=== PATIENT | male | born 1960 | race African-American/Black ===

== ENCOUNTER → 2016-10-22 | Outpatient (CLI) | payer OTHER ==
[2016-10-22 11:47] LABS: ASPARTATE AMINO TRANSFERASE 183 U/L (15-37); BLOOD UREA NITROGEN 8 mg/dL (7-18); PROSTATE SPECIFIC ANTIGEN 0.38 ng/mL (0.00-4.00)
== END | disposition home or self-care (01) ==
LOC: CFH 07:15
PROVIDERS: ATTEND Nurse Practitioner Family
DX: Z12.9 Encounter for screening for malignant neoplasm, site unspecified (principal); E78.2 Mixed hyperlipidemia; E53.8 Deficiency of other specified B group vitamins; D77 Other disorders of blood and blood-forming organs in diseases classified elsewhere; R74.0 Nonspecific elevation of levels of transaminase and lactic acid dehydrogenase [LDH]; I10 Essential (primary) hypertension; E55.9 Vitamin D deficiency, unspecified
CPT/HCPCS: 36415; 80053; 80061; 82043; 82306; 82607; 82746; 84153; 84425; 84443; 85025

== ENCOUNTER → 2019-05-24 | Outpatient (CLI) | payer OTHER ==
[~2019-05-24] MED LIST: FINA5TAB4 PO; LOSA50TA14 PO; MULT-658 PO; TAMS-11 PO; VERA120T5 PO; ibuprofen PO; magnesium PO; vitamin B12 PO
[2019-05-24 10:06] LABS: BASOPHILS # (AUTO) 0.02 x10^3/uL (0-0.1); BASOPHILS % (AUTO) 0 % (0-1); EOSINOPHILS # (AUTO) 0.04 x10^3/uL (0-0.4); EOSINOPHILS % (AUTO) 1 % (1-7); LYMPHOCYTES # (AUTO) 2.65 x10^3/uL (1-3.4); LYMPHOCYTES % (AUTO) 44 % (22-44); MD NO; MEAN CORPUSCULAR HEMOGLOBIN 33.2 pg (27.5-34.5); MEAN CORPUSCULAR HGB CONC 33.4 g/dL (33.2-36.2); MEAN CORPUSCULAR VOLUME 99.4 fL (81-97); MEAN PLATELET VOLUME 7.1 fL (7.4-10.4); MONOCYTES # (AUTO) 0.56 x10^3/uL (0.2-0.8); MONOCYTES % (AUTO) 9 % (2-9); NEUTROPHILS # (AUTO) 2.79 x10^3/uL (1.8-6.8); NEUTROPHILS % (AUTO) 46 % (42-75); PLATELET COUNT 282 x10^3/uL (130-400); RED BLOOD COUNT 4.57 x10^6/uL (4.38-5.82); RED CELL DISTRIBUTION WIDTH 14.1 % (9.4-14.8)
[2019-05-24 10:08] LABS: CULTURE INDICATED? NO; MICROSCOPIC AUTO
[2019-05-24 10:18] LABS: INTERNATIONAL NORMALIZED RATIO 1.13 (0.93-1.1); PROTHROMBIN TIME 11.8 Seconds (9.6-11.5)
[2019-05-24 10:19] LABS: ALANINE AMINOTRANSFERASE 32 U/L (12-78); ALBUMIN 3.8 g/dL (3.4-5.0); ANION GAP 8 mmol/L (5-15); CALCIUM 9.6 mg/dL (8.5-10.1); CHLORIDE 107 mmol/L (98-107); CREATININE 0.96 mg/dL (0.7-1.3)
[2019-05-24 10:21] LABS: ALKALINE PHOSPHATASE 143 U/L (45-117); BILIRUBIN,TOTAL 0.5 mg/dL (0.2-1.0); TOTAL PROTEIN 8.5 g/dL (6.4-8.2)
== END | disposition home or self-care (01) ==
LOC: STAR 08:34
PROVIDERS: ATTEND Neurological Surgery
DX: M51.26 Other intervertebral disc displacement, lumbar region (principal); M48.061 Spinal stenosis, lumbar region without neurogenic claudication; R79.1 Abnormal coagulation profile; R94.31 Abnormal electrocardiogram [ECG] [EKG]; R82.90 Unspecified abnormal findings in urine
CPT/HCPCS: 36415; 71046; 80053; 81001; 85025; 85610; 85730; 93005

== ENCOUNTER 2019-06-11 12:27 | Inpatient (IN) | payer OTHER ==
[~2019-06-11] VITALS: Ht 185.4 cm; Wt 122.7 kg
[~2019-06-11 12:27] MED LIST changes: +CEPH-368 PO; +CHLO25TA PO; +CYCL-259 PO; +HYDR20TA PO; +OXYC-302 PO
[2019-06-11] MEDS ORDERED: VANCOMYCIN PER PHARMACY MC ONE (14:00)
[2019-06-11] MEDS ORDERED: PIPERACILLIN/TAZO/PMX 3.375GM 50 ML IVPB ONE (14:00)
[2019-06-11] MEDS ORDERED: PHARMACOKINETIC CONSULTATION MC ONE (14:00)
[2019-06-11 14:06] LABS: BASOPHILS # (AUTO) 0.03 x10^3/uL (0-0.1); BASOPHILS % (AUTO) 0 % (0-1); EOSINOPHILS # (AUTO) 0.11 x10^3/uL (0-0.4); EOSINOPHILS % (AUTO) 1 % (1-7); LYMPHOCYTES # (AUTO) 2.18 x10^3/uL (1-3.4); LYMPHOCYTES % (AUTO) 27 % (22-44); MD NO; MEAN CORPUSCULAR HEMOGLOBIN 33.4 pg (27.5-34.5); MEAN CORPUSCULAR HGB CONC 33.2 g/dL (33.2-36.2); MEAN CORPUSCULAR VOLUME 100.6 fL (81-97); MEAN PLATELET VOLUME 7.3 fL (7.4-10.4); MONOCYTES % (AUTO) 9 % (2-9); NEUTROPHILS % (AUTO) 63 % (42-75); PLATELET COUNT 308 x10^3/uL (130-400); RED CELL DISTRIBUTION WIDTH 14.6 % (9.4-14.8)
[2019-06-11 14:18] LABS: ALANINE AMINOTRANSFERASE 66 U/L (12-78); ALBUMIN 3.2 g/dL (3.4-5.0); ANION GAP 9 mmol/L (5-15); CHLORIDE 101 mmol/L (98-107); CREATININE 1.53 mg/dL (0.7-1.3)
[2019-06-11 14:21] LABS: ALKALINE PHOSPHATASE 164 U/L (45-117); BILIRUBIN,TOTAL 0.3 mg/dL (0.2-1.0)
[2019-06-11] MEDS ORDERED: VANCOMYCIN 2,200 MG in SODIUM CHLORIDE 0.9% 500 ML IV ONE (14:30)
[2019-06-11] MEDS ORDERED: TAMS-11 PO (14:59)
--- NOTE | 2019-06-11 15:03 | NUR ---
PT IN BED, AT BEDSIDE. PLAN OF CARE DISCUSSED, ALL QUESTIONS ADDRESSED BEST POSSIBLE. SURGEON TO COMMUNICATE WITH PATIENT LATER FOR SURGICAL TIME. PT WOULD LIKE TO EAT, ON HOLD UNTIL TIME ESTABLISHED. PT STRAIGHT CATH'D FOR RETENTION FOR PATIENT COMFORT, 150ML REMOVED, PT STILL UNCOMFORTABLE HOWEVER EDUCATED ON JUAN PLACEMENT PROCEDURES AND NEED TO WAIT UNTIL OUT OF ER FOR FURTHER TREATMENT. PT AGREEABLE, DENIES ANY NEEDS OR CONCERNS AT THIS TIME. [facility] AT BEDSIDE, REPORT CALLED TO RECEIVING RN. [facility] WILL BE SENT WITH PATIENT. AWAITING TRANSPORT AT THIS TIME. CALL LIGHT IN REACH.
[2019-06-11] MEDS ORDERED: BUPIVACAINE/PF 0.5% ONE (16:47)
[2019-06-11] MEDS ORDERED: VANCOMYCIN 1,000 MG ONE (16:47)
[2019-06-11] MEDS ORDERED: THROMBIN (RECOMBINANT) 5,000 UNIT VIAL TP ONE (16:47)
[2019-06-11] MEDS ORDERED: BACITRACIN 50,000 UNIT ONE (16:48)
[2019-06-11] MEDS ORDERED: EPINEPHRINE 1 MG/ML, 1ML ONE (16:48)
[2019-06-11] MEDS ORDERED: LABETALOL 5MG/ML, 20ML IVPush PRN (17:00)
[2019-06-11] MEDS ORDERED: hydrALAzine 20 MG/ML, 1ML IVPush PRN (17:00)
[2019-06-11] MEDS ORDERED: DOCUSATE 100 MG CAPSULE PO PRN (17:00)
[2019-06-11] MEDS: HEPARIN 5,000 UNITS/ML, 1ML SQ SCH (17:00)
[2019-06-11] MEDS ORDERED: morphine SULFATE 10 MG/ML, 1ML IVPush PRN ×2 (17:00→19:30)
[2019-06-11] MEDS ORDERED: ONDANSETRON ODT 4 MG PO PRN (17:00)
[2019-06-11] MEDS ORDERED: OXYcodone IR 5MG TABLET PO PRN (17:00)
[2019-06-11] MEDS ORDERED: HYDROmorphone 2 MG/ML, 1ML IVPush PRN (17:00)
[2019-06-11] MEDS ORDERED: POLYETHYLENE GLYCOL 17 GM PACKET PO PRN (17:00)
[2019-06-11] MEDS ORDERED: BISACODYL 10 MG SUPP PR PRN ×2 (17:00→19:30)
[2019-06-11] MEDS ORDERED: PROMETHAZINE 25 MG/ML, 1ML IM PRN ×2 (17:00→19:30)
[2019-06-11] MEDS ORDERED: METOCLOPRAMIDE 5 MG/ML, 2ML IVPush PRN (17:00)
[2019-06-11] MEDS ORDERED: CYCLOBENZAPRINE 10 MG TABLET PO PRN ×2 (17:00)
[2019-06-11] MEDS ORDERED: FENTANYL PF 250 MCG/5ML ONE (17:27)
[2019-06-11] MEDS ORDERED: MIDAZOLAM 1 MG/ML, 2ML ONE (17:27)
[2019-06-11] MEDS: CEFTRIAXONE PMX 2GM/50ML 50 ML IV SCH (17:30)
[2019-06-11] MEDS ORDERED: HYDROCORTISONE 100 MG INJ. ONE (17:35)
[2019-06-11] MEDS ORDERED: ROCURONIUM 10MG/ML,5ML ONE (18:34)
[2019-06-11] MEDS ORDERED: GLYCOPYRROLATE 0.2MG/1ML, 5ML ONE (18:34)
[2019-06-11] MEDS ORDERED: PROPOFOL 10 MG/ML, 20ML ONE (18:34)
[2019-06-11] MEDS ORDERED: ONDANSETRON 2MG/ML, 2ML ONE (18:35)
[2019-06-11] MEDS ORDERED: FENTANYL PF 100 MCG/2ML ONE ×2 (19:10→19:46)
[2019-06-11] MEDS: FENTANYL PF 100 MCG/2ML IV PRN ×4 (19:21→20:01)
[2019-06-11] MEDS ORDERED: OXYcodone 5 MG/5 ML ORAL.SOL UDC ONE ×2 (19:24)
[2019-06-11] MEDS ORDERED: HYDROmorphone 1 MG/ML, 1ML INJ ONE ×2 (19:24→20:02)
[2019-06-11] MEDS ORDERED: PHARMACY MAY ADJ FOR RENAL FX MC PRN (19:30)
[2019-06-11] MEDS ORDERED: ONDANSETRON 2MG/ML, 2ML IV PRN (19:30)
[2019-06-11] MEDS ORDERED: HYDROcodone/APAP 5/325 TABLET PO PRN (19:30)
[2019-06-11] MEDS ORDERED: SENNA/DOCUSATE TABLET PO PRN (19:30)
[2019-06-11] MEDS ORDERED: ONDANSETRON 2MG/ML, 2ML IVPush PRN (19:30)
[2019-06-11] MEDS ORDERED: OXYcodone 5 MG/5 ML ORAL.SOL UDC PO PRN (19:30)
[2019-06-11] MEDS ORDERED: METHOCARBAMOL 750 MG TABLET PO PRN (19:30)
[2019-06-11] MEDS ORDERED: hydrALAzine 20 MG/ML, 1ML IV PRN (19:30)
[2019-06-11] MEDS ORDERED: LABETALOL 5MG/ML, 20ML IV PRN (19:30)
[2019-06-11] MEDS ORDERED: PROMETHAZINE 25 MG/ML, 1ML IV PRN (19:30)
[2019-06-11] MEDS ORDERED: OXYcodone/APAP 5/325MG TABLET PO PRN (19:30)
[2019-06-11] MEDS ORDERED: ACETAMINOPHEN 325 MG TABLET PO PRN (19:30)
[2019-06-11] MEDS: HYDROmorphone 2 MG/ML, 1ML IVPush PRN ×4 (19:31→20:13)
[2019-06-11] MEDS ORDERED: METHOCARBAMOL 750 MG TABLET ONE (19:43)
[2019-06-11] MEDS: LACTULOSE 10 GM/15 ML UDC PO SCH (21:00)
[2019-06-11] MEDS: SODIUM CHLORIDE 0.9% 1,000 ML IV SCH (21:00)
[2019-06-11] MEDS: HYDROcodone/APAP 10/325 MG TABLET PO PRN (21:19)
[2019-06-11] MEDS: TAMSULOSIN 0.4 MG CAP.ER.24H PO SCH (21:19)
[2019-06-11 21:44] VITALS: BP 150/83
[2019-06-12] VITALS: BP 97/62
[2019-06-12] MEDS: HYDROcodone/APAP 10/325 MG TABLET PO PRN ×5 (00:58→22:54)
[2019-06-12] MEDS: HEPARIN 5,000 UNITS/ML, 1ML SQ SCH ×2 (00:58→09:01)
[2019-06-12 05:06] LABS: BASOPHILS # (AUTO) 0.03 x10^3/uL (0-0.1); BASOPHILS % (AUTO) 0 % (0-1); EOSINOPHILS # (AUTO) 0.03 x10^3/uL (0-0.4); EOSINOPHILS % (AUTO) 0 % (1-7); LYMPHOCYTES % (AUTO) 22 % (22-44); MD NO; MEAN CORPUSCULAR HGB CONC 32.8 g/dL (33.2-36.2); MEAN CORPUSCULAR VOLUME 100.6 fL (81-97); MEAN PLATELET VOLUME 7.3 fL (7.4-10.4); MONOCYTES # (AUTO) 0.81 x10^3/uL (0.2-0.8); MONOCYTES % (AUTO) 9 % (2-9); NEUTROPHILS # (AUTO) 6.54 x10^3/uL (1.8-6.8); NEUTROPHILS % (AUTO) 69 % (42-75); PLATELET COUNT 306 x10^3/uL (130-400); RED BLOOD COUNT 3.91 x10^6/uL (4.38-5.82); RED CELL DISTRIBUTION WIDTH 14.3 % (9.4-14.8)
[2019-06-12 05:15] LABS: ALANINE AMINOTRANSFERASE 51 U/L (12-78); ALBUMIN 2.8 g/dL (3.4-5.0); ANION GAP 8 mmol/L (5-15); CALCIUM 8.5 mg/dL (8.5-10.1); CHLORIDE 103 mmol/L (98-107); CREATININE 1.19 mg/dL (0.7-1.3)
[2019-06-12] MEDS: CEFTRIAXONE PMX 2GM/50ML 50 ML IV SCH ×2 (05:15→17:19)
[2019-06-12] MEDS: SODIUM CHLORIDE 0.9% 1,000 ML IV SCH ×2 (05:15→16:04)
[2019-06-12 05:17] LABS: ALKALINE PHOSPHATASE 140 U/L (45-117); BILIRUBIN,TOTAL 0.5 mg/dL (0.2-1.0); TOTAL PROTEIN 7.1 g/dL (6.4-8.2)
[2019-06-12] MEDS: ENOXAPARIN 40 MG/0.4 ML SQ SCH (05:21)
[2019-06-12 06:47] VITALS: BP 109/70
[2019-06-12] MEDS: HYDROCORTISONE 20 MG TABLET PO SCH (09:00)
[2019-06-12] MEDS: MULTIVITAMIN 1 TABLET PO SCH (09:01)
[2019-06-12] MEDS: TAMSULOSIN 0.4 MG CAP.ER.24H PO SCH ×2 (09:01→20:12)
[2019-06-12] MEDS: LACTULOSE 10 GM/15 ML UDC PO SCH ×2 (09:01→21:00)
[2019-06-12] MEDS: FINASTERIDE 5 MG TABLET PO SCH (09:03)
[2019-06-12 13:21] VITALS: BP 123/78
[2019-06-12 16:31] LABS: MICROSCOPIC AUTO
[2019-06-12 16:36] LABS: CULTURE INDICATED? NO
[2019-06-12 23:06] VITALS: BP 157/94
[2019-06-13 02:00] VITALS: BP 152/94
[2019-06-13] MEDS: SODIUM CHLORIDE 0.9% 1,000 ML IV SCH ×3 (03:00→23:00)
[2019-06-13] MEDS: HYDROcodone/APAP 10/325 MG TABLET PO PRN ×5 (03:00→20:25)
[2019-06-13 05:37] LABS: BASOPHILS # (AUTO) 0.03 x10^3/uL (0-0.1); BASOPHILS % (AUTO) 0 % (0-1); MD NO
[2019-06-13] MEDS: ENOXAPARIN 40 MG/0.4 ML SQ SCH (05:39)
[2019-06-13] MEDS: CEFTRIAXONE PMX 2GM/50ML 50 ML IV SCH ×2 (05:39→18:09)
[2019-06-13] MEDS: CYCLOBENZAPRINE 10 MG TABLET PO PRN ×2 (05:39→14:56)
[2019-06-13 05:48] LABS: ANION GAP 9 mmol/L (5-15); CALCIUM 8.3 mg/dL (8.5-10.1); CHLORIDE 101 mmol/L (98-107)
[2019-06-13 05:50] LABS: EOSINOPHILS % (AUTO) 1 % (1-7); LYMPHOCYTES # (AUTO) 2.61 x10^3/uL (1-3.4); LYMPHOCYTES % (AUTO) 37 % (22-44); MEAN CORPUSCULAR HGB CONC 32.9 g/dL (33.2-36.2); MEAN CORPUSCULAR VOLUME 100.2 fL (81-97); MEAN PLATELET VOLUME 7.3 fL (7.4-10.4); MONOCYTES # (AUTO) 0.75 x10^3/uL (0.2-0.8); MONOCYTES % (AUTO) 11 % (2-9); NEUTROPHILS # (AUTO) 3.64 x10^3/uL (1.8-6.8); NEUTROPHILS % (AUTO) 51 % (42-75); PLATELET COUNT 282 x10^3/uL (130-400); RED BLOOD COUNT 3.91 x10^6/uL (4.38-5.82); RED CELL DISTRIBUTION WIDTH 14.1 % (9.4-14.8)
[2019-06-13 06:17] LABS: CREATININE 1.04 mg/dL (0.7-1.3)
[2019-06-13] MEDS: LACTULOSE 10 GM/15 ML UDC PO SCH ×3 (07:51→20:45)
[2019-06-13] MEDS: FINASTERIDE 5 MG TABLET PO SCH (07:51)
[2019-06-13] MEDS: TAMSULOSIN 0.4 MG CAP.ER.24H PO SCH ×2 (07:51→19:58)
[2019-06-13] MEDS: HYDROCORTISONE 20 MG TABLET PO SCH (07:51)
[2019-06-13] MEDS: MULTIVITAMIN 1 TABLET PO SCH (07:51)
[2019-06-13 07:58] VITALS: BP 149/91
[2019-06-13 13:45] VITALS: BP 142/88
[2019-06-13 20:18] VITALS: BP 157/94
[2019-06-14] MEDS: CYCLOBENZAPRINE 10 MG TABLET PO PRN (01:40)
[2019-06-14] MEDS: HYDROcodone/APAP 10/325 MG TABLET PO PRN (01:40)
[2019-06-14 01:46] VITALS: BP 153/87
[2019-06-14 05:23] LABS: BASOPHILS # (AUTO) 0.03 x10^3/uL (0-0.1); BASOPHILS % (AUTO) 0 % (0-1); EOSINOPHILS # (AUTO) 0.12 x10^3/uL (0-0.4); EOSINOPHILS % (AUTO) 2 % (1-7); LYMPHOCYTES # (AUTO) 2.04 x10^3/uL (1-3.4); LYMPHOCYTES % (AUTO) 30 % (22-44); MD NO; MEAN CORPUSCULAR HEMOGLOBIN 32.5 pg (27.5-34.5); MEAN CORPUSCULAR HGB CONC 33.2 g/dL (33.2-36.2); MEAN PLATELET VOLUME 7.1 fL (7.4-10.4); MONOCYTES # (AUTO) 0.86 x10^3/uL (0.2-0.8); MONOCYTES % (AUTO) 12 % (2-9); NEUTROPHILS # (AUTO) 3.84 x10^3/uL (1.8-6.8); NEUTROPHILS % (AUTO) 56 % (42-75); PLATELET COUNT 294 x10^3/uL (130-400); RED BLOOD COUNT 3.97 x10^6/uL (4.38-5.82); RED CELL DISTRIBUTION WIDTH 13.9 % (9.4-14.8)
[2019-06-14 05:30] LABS: CHLORIDE 100 mmol/L (98-107)
[2019-06-14 05:37] LABS: ALANINE AMINOTRANSFERASE 49 U/L (12-78); ALBUMIN 2.8 g/dL (3.4-5.0); ALKALINE PHOSPHATASE 143 U/L (45-117); ANION GAP 8 mmol/L (5-15); BILIRUBIN,TOTAL 0.2 mg/dL (0.2-1.0); CALCIUM 8.5 mg/dL (8.5-10.1); CREATININE 0.97 mg/dL (0.7-1.3); TOTAL PROTEIN 7.2 g/dL (6.4-8.2)
[2019-06-14] MEDS: CEFTRIAXONE PMX 2GM/50ML 50 ML IV SCH (06:49)
[2019-06-14] MEDS: ENOXAPARIN 40 MG/0.4 ML SQ SCH (07:20)
[2019-06-14 07:43] VITALS: BP 150/91
[2019-06-14] MEDS: SODIUM CHLORIDE 0.9% 1,000 ML IV SCH (09:00)
[2019-06-14] MEDS: MULTIVITAMIN 1 TABLET PO SCH (09:17)
[2019-06-14] MEDS: BETHANECHOL 10 MG TABLET PO SCH ×2 (09:17→16:00)
[2019-06-14] MEDS: FINASTERIDE 5 MG TABLET PO SCH (09:17)
[2019-06-14] MEDS: HYDROCORTISONE 20 MG TABLET PO SCH (09:17)
[2019-06-14] MEDS: TAMSULOSIN 0.4 MG CAP.ER.24H PO SCH (09:17)
[2019-06-14] MEDS: LACTULOSE 10 GM/15 ML UDC PO SCH (09:20)
[2019-06-14] MEDS ORDERED: MAGNESIUM CITRATE 300ML ORAL SOL PO PRN (10:00)
[2019-06-14 12:15] VITALS: BP 146/88
[2019-06-14 16:30] VITALS: BP 144/68
[2019-06-14] MEDS ORDERED: SULF1TAB24 PO (17:07)
[2019-06-14] MEDS ORDERED: BETH10TA12 PO (17:08)
[2019-06-14] MEDS ORDERED: HYDR-36 PO (17:09)
== END 2019-06-14 17:36 | disposition home or self-care (01) | DRG 29 ==
LOC: OR 14:09 → EDIP 14:10 → OR 14:16 → 4NE 15:15 → DCLOUNGE 06-14 17:04
PROVIDERS: ADMIT Internal Medicine; ATTEND Internal Medicine
PROC: 00UT0KZ Supplement Spinal Meninges with Nonautologous Tissue Substitute, Open Approach (ICD-10-PCS; 2019-06-11)
PROC: 01NB0ZZ Release Lumbar Nerve, Open Approach (ICD-10-PCS; principal; 2019-06-11 17:30)
PROC: 0T9B70Z Drainage of Bladder with Drainage Device, Via Natural or Artificial Opening (ICD-10-PCS; 2019-06-12)
DX: G97.82 Other postprocedural complications and disorders of nervous system (principal); E87.1 Hypo-osmolality and hyponatremia; G96.0 Cerebrospinal fluid leak; N17.9 Acute kidney failure, unspecified; M51.16 Intervertebral disc disorders with radiculopathy, lumbar region; D75.89 Other specified diseases of blood and blood-forming organs; E88.09 Other disorders of plasma-protein metabolism, not elsewhere classified; F32.9 Major depressive disorder, single episode, unspecified; G96.19 Other disorders of meninges, not elsewhere classified; I10 Essential (primary) hypertension; N40.1 Benign prostatic hyperplasia with lower urinary tract symptoms; R33.8 Other retention of urine; Y83.8 Other surgical procedures as the cause of abnormal reaction of the patient, or of later complication, without mention of misadventure at the time of the procedure; Z72.89 Other problems related to lifestyle
CPT/HCPCS: 36415; 84145; 96374; 99285; S0020; 80048; 80053; 81001; 82533; 82607; 83605; 83735; 84100; 84443; 85025; 87040; C1729; G0378; J0171; J0696; J1170; J1650; J2250; J2405; J2704; J3010; J3370; C1781; J1720; J7030; J7040

== ENCOUNTER 2020-02-21 16:46 | Emergency (ER) | payer OTHER ==
[~2020-02-21] VITALS: Ht 185.4 cm; Wt 115.0 kg
[~2020-02-21 16:46] MED LIST changes: +BETH10TA12 PO; +HYDR-3246 PO; +SULF1TAB24 PO; +VERA120T13 PO; -VERA120T5 PO
[2020-02-21 16:56] VITALS: BP 172/108
--- NOTE | 2020-02-21 17:01 | NUR ---
faye. report received from [facility]. pt went to [facility] d/t back pain radiating to bilateral legs with tingling feeling today. MRI show pt has abscess on back. pt had back sx about 8-9 months ago. hx of chronic back pain. denies any other sx. pt's aox4. resps even and unlabored. bp/spo2 monitors in place. 650 tylenol and 2gm cefepime given at [facility]. pa at bedside evaluating at this time.
[2020-02-21] MEDS ORDERED: VALS40TA2 PO (17:04)
[2020-02-21] MEDS ORDERED: vitamin d3 (17:05)
[2020-02-21] MEDS ORDERED: MULTIVITAMIN (17:06)
[2020-02-21] MEDS ORDERED: vitamin b1 (17:06)
--- NOTE | 2020-02-21 18:05 | NUR ---
pt resting in [facility]. pt's aox4. resps even and unlabored. bp/spo2 monitors in place. call light within reach.
--- NOTE | 2020-02-21 18:40 | NUR ---
Patient given discharge instructions and they have confirmed that they understand the instructions. Patient ambulatory with steady gait.
== END 2020-02-21 18:41 | disposition home or self-care (01) ==
LOC: ED 18:06
DX: M54.5 Low back pain (principal); M54.6 Pain in thoracic spine; R20.2 Paresthesia of skin; I10 Essential (primary) hypertension; R93.89 Abnormal findings on diagnostic imaging of other specified body structures
CPT/HCPCS: 99283

== ENCOUNTER → 2020-04-25 | Outpatient (CLI) | payer OTHER ==
[~2020-04-25] MED LIST changes: +MULTIVITAMIN; +VALS40TA2 PO; +vitamin b1; +vitamin d3
[2020-04-25 15:43] LABS: BASOPHILS % (AUTO) 1 % (0-1); EOSINOPHILS % (AUTO) 1 % (1-7); LYMPHOCYTES % (AUTO) 37 % (22-44); MEAN CORPUSCULAR HGB CONC 33.9 g/dL (33.2-36.2); MEAN PLATELET VOLUME 7.1 fL (7.4-10.4); MONOCYTES % (AUTO) 9 % (2-9); NEUTROPHILS % (AUTO) 52 % (42-75); PLATELET COUNT 233 x10^3/uL (130-400); RED BLOOD COUNT 4.43 x10^6/uL (4.38-5.82); RED CELL DISTRIBUTION WIDTH 12.9 % (9.4-14.8)
[2020-04-25 15:45] LABS: MD NO
[2020-04-25 15:51] LABS: INTERNATIONAL NORMALIZED RATIO 1.18 (0.93-1.1); PROTHROMBIN TIME 12.5 Seconds (9.6-11.5)
[2020-04-25 15:53] LABS: ALANINE AMINOTRANSFERASE 39 U/L (12-78); ALBUMIN 3.6 g/dL (3.4-5.0); ANION GAP 5 mmol/L (5-15); CALCIUM 8.9 mg/dL (8.5-10.1); CHLORIDE 106 mmol/L (98-107)
[2020-04-25 15:56] LABS: ALKALINE PHOSPHATASE 103 U/L (45-117); BILIRUBIN,TOTAL 0.5 mg/dL (0.2-1.0); CREATININE 1.24 mg/dL (0.7-1.3); TOTAL PROTEIN 7.6 g/dL (6.4-8.2)
[2020-04-25 16:41] LABS: MICROSCOPIC AUTO
== END | disposition home or self-care (01) ==
LOC: STAR 14:48
PROVIDERS: ATTEND Surgery
DX: Z01.812 Encounter for preprocedural laboratory examination (principal); Z20.828 Contact with and (suspected) exposure to other viral communicable diseases; K43.2 Incisional hernia without obstruction or gangrene
CPT/HCPCS: 36415; 80053; 81001; 85025; 85610; 87086; 87635

== ENCOUNTER 2020-04-27 10:23 | Day surgery (SDC) | payer OTHER ==
[~2020-04-27] VITALS: Ht 185.4 cm; Wt 122.6 kg
[2020-04-27 10:53] VITALS: BP 156/107
[2020-04-27] MEDS ORDERED: CHLORHEXIDINE 15 ML UDC MM ONE (11:00)
[2020-04-27] MEDS ORDERED: LACTATED RINGERS 1,000 ML IV SCH (11:00)
[2020-04-27] MEDS ORDERED: DEXAMETHASONE 4 MG/ML, 1ML ONE (11:55)
[2020-04-27] MEDS ORDERED: LIDOCAINE-MPF 2% ,5ML ONE (11:55)
[2020-04-27] MEDS ORDERED: ROCURONIUM 10MG/ML,5ML ONE (11:55)
[2020-04-27] MEDS ORDERED: GLYCOPYRROLATE 0.2MG/1ML, 5ML ONE (11:55)
[2020-04-27] MEDS ORDERED: PROPOFOL 10 MG/ML, 20ML ONE (11:55)
[2020-04-27] MEDS ORDERED: FENTANYL PF 250 MCG/5ML ONE (11:56)
[2020-04-27] MEDS ORDERED: MIDAZOLAM 1 MG/ML, 5ML ONE (11:56)
[2020-04-27] MEDS ORDERED: hydrALAzine 20 MG/ML, 1ML IV PRN (12:00)
[2020-04-27] MEDS ORDERED: MIDAZOLAM 1 MG/ML, 2ML IV PRN (12:00)
[2020-04-27] MEDS ORDERED: HYDROcodone/APAP 7.5-325MG/15ML UDC PO PRN (12:00)
[2020-04-27] MEDS ORDERED: EPHEDRINE 50 MG/ML, 1ML IM PRN (12:00)
[2020-04-27] MEDS ORDERED: KETOROLAC 30 MG/1 ML IM PRN (12:00)
[2020-04-27] MEDS ORDERED: ONDANSETRON 2MG/ML, 2ML IVPush PRN (12:00)
[2020-04-27] MEDS ORDERED: ACETAMINOPHEN 325 MG TABLET PO PRN (12:00)
[2020-04-27] MEDS ORDERED: METOCLOPRAMIDE 5 MG/ML, 2ML IVPush PRN (12:00)
[2020-04-27] MEDS ORDERED: METHOCARBAMOL 1,000 MG in DEXTROSE 5% 100 ML IV PRN (12:00)
[2020-04-27] MEDS ORDERED: OXYcodone 5 MG/5 ML ORAL.SOL UDC PO PRN (12:00)
[2020-04-27] MEDS ORDERED: LORazepam 2 MG/ML, 1ML IVPush PRN (12:00)
[2020-04-27] MEDS ORDERED: LABETALOL 5MG/ML, 20ML IV PRN (12:00)
[2020-04-27] MEDS ORDERED: EPHEDRINE 50 MG/ML, 1ML IVPush PRN (12:00)
[2020-04-27] MEDS ORDERED: HALOPERIDOL 5 MG/ML IV PRN (12:00)
[2020-04-27] MEDS ORDERED: MEPERIDINE/PF 25MG/0.5ML IVPush PRN (12:00)
[2020-04-27] MEDS ORDERED: ALBUTEROL/IPRATROPIUM 2.5MG/0.5MG, 3 ML NPPB PRN (12:00)
[2020-04-27] MEDS ORDERED: DIAZEPAM 5 MG/ML, 2ML IVPush PRN (12:00)
[2020-04-27] MEDS ORDERED: DIPHENHYDRAMINE 50 MG/ML, 1ML IVPush PRN (12:00)
[2020-04-27] MEDS ORDERED: EPINEPHRINE 1 MG/ML, 1ML ONE (12:09)
[2020-04-27] MEDS ORDERED: BUPIVACAINE/PF 0.5% ONE (12:09)
[2020-04-27] MEDS ORDERED: CEFAZOLIN 1,000 MG ONE (12:20)
[2020-04-27] MEDS ORDERED: MAGNESIUM SULFATE 8 MEQ/2 ML, 2ML ONE (12:20)
[2020-04-27] MEDS ORDERED: BUPIVACAINE/PF-EPI 0.5% 1:200K INFIL ONE (13:20)
[2020-04-27] MEDS ORDERED: LABETALOL 5MG/ML, 20ML ONE (14:24)
[2020-04-27] MEDS ORDERED: OXYcodone 5 MG/5 ML ORAL.SOL UDC ONE (14:28)
[2020-04-27] MEDS ORDERED: HYDROmorphone 2 MG/ML, 1ML ONE (14:28)
[2020-04-27] MEDS ORDERED: FENTANYL PF 100 MCG/2ML ONE (14:28)
[2020-04-27] MEDS: FENTANYL PF 100 MCG/2ML IV PRN ×2 (14:30→14:51)
[2020-04-27] MEDS: HYDROmorphone 1 MG/ML, 1ML INJ IVPush PRN ×3 (14:33→15:00)
== END 2020-04-27 18:50 | disposition home or self-care (01) ==
LOC: OUT 10:23
PROVIDERS: ATTEND Surgery
DX: K43.2 Incisional hernia without obstruction or gangrene (principal); I10 Essential (primary) hypertension; Z79.02 Long term (current) use of antithrombotics/antiplatelets; E66.01 Morbid (severe) obesity due to excess calories; Z79.899 Other long term (current) drug therapy; Z98.1 Arthrodesis status
CPT/HCPCS: 49654; C1781; J0171; J0690; J1100; J1170; J2250; J2704; J2800; J3010; J3475; J7120; S2900

== ENCOUNTER → 2020-05-10 | Outpatient (CLI) | payer OTHER | END | disposition home or self-care (01) | LOC: STAR 08:11 | PROVIDERS: ATTEND Student in an Organized Health Care Education/Training Program | DX: Z20.828 Contact with and (suspected) exposure to other viral communicable diseases (principal) | CPT/HCPCS: 87635 ==

== ENCOUNTER 2020-05-17 11:27 | Day surgery (SDC) | payer OTHER ==
[~2020-05-17] VITALS: Ht 185.4 cm; Wt 123.6 kg
[2020-05-17] MEDS ORDERED: LACTATED RINGERS 1,000 ML IV SCH (12:00)
[2020-05-17] MEDS ORDERED: CHLORHEXIDINE 15 ML UDC MM ONE (12:00)
[2020-05-17] MEDS ORDERED: FENTANYL PF 100 MCG/2ML ONE (15:19)
[2020-05-17] MEDS ORDERED: DEXAMETHASONE 4 MG/ML, 5ML ONE (15:22)
[2020-05-17] MEDS ORDERED: PROPOFOL 10 MG/ML, 20ML ONE (15:22)
[2020-05-17] MEDS ORDERED: ONDANSETRON 2MG/ML, 2ML ONE (15:22)
[2020-05-17] MEDS ORDERED: CEFAZOLIN 1,000 MG ONE (15:22)
[2020-05-17] MEDS ORDERED: ACETAMINOPHEN 325 MG TABLET PO PRN (16:00)
[2020-05-17] MEDS ORDERED: hydrALAzine 20 MG/ML, 1ML IV PRN (16:00)
[2020-05-17] MEDS ORDERED: FENTANYL PF 100 MCG/2ML IV PRN (16:00)
[2020-05-17] MEDS ORDERED: OXYcodone 5 MG/5 ML ORAL.SOL UDC PO PRN (16:00)
[2020-05-17] MEDS ORDERED: ONDANSETRON 2MG/ML, 2ML IVPush PRN (16:00)
[2020-05-17] MEDS ORDERED: LABETALOL 5MG/ML, 20ML IV PRN (16:00)
[2020-05-17] MEDS ORDERED: HYDROmorphone 1 MG/ML, 1ML INJ IVPush PRN (16:00)
== END 2020-05-17 17:40 | disposition home or self-care (01) ==
LOC: OUT 11:27
PROVIDERS: ATTEND Student in an Organized Health Care Education/Training Program
DX: N40.1 Benign prostatic hyperplasia with lower urinary tract symptoms (principal); N13.8 Other obstructive and reflux uropathy; R33.8 Other retention of urine; I10 Essential (primary) hypertension; Z79.899 Other long term (current) drug therapy
CPT/HCPCS: 52450; J0690; J1100; J2405; J2704; J3010